=== PATIENT | female | born 1990 | race Caucasian/White ===

== ENCOUNTER 2017-08-06 08:28 | Day surgery (SDC) | payer MEDICAID, OTHER ==
[~2017-08-06] VITALS: Ht 154.9 cm; Wt 69.0 kg
[2017-08-06] VITALS (8 sets, daily range): BP systolic 106–124; BP diastolic 50–66; PULSE 67–86; RESP 16–55; Ht 154.9 cm; Wt 69.0 kg
--- NOTE | 2017-08-06 07:53 | HPN ---
Date/Time of Note Date/Time of Note DATE: 08/06/17 TIME: 07:53 Interval H&P Admission Note Pt. seen H&P reviewed: No system changes ARTHUR MONTE MD Aug 06, 2017 07:53
[~2017-08-06 08:28] MED LIST: ATROPINE 1 MG/10 ML SYRINGE IV PRN; BALANCED SALT SOLN 15 ML OPH IRRIG ONE; DIPHENHYDRAMINE 50 MG INJ IV PRN; EPHEDrine SULFATE 50 MG/5 ML SYG IV PRN; FENTAnyl 50 MCG/ML VIAL IV PRN; HYDROmorphONE (0.2 MG/ML) 10ML SYG IV PRN; LABETALOL HCL 20MG INJ IV PRN; LIDOCAINE 2%/EPI 30 ML INJ ONE; MEPERIDINE 25 MG INJ IV PRN; MIDAZOLAM 1 MG/ML 2 ML INJ IV PRN; MITOMYCIN 5 MG INJ OP ONE; ONDANSETRON 4 MG INJ IV PRN; OXYCODONE/ACETAMINOPHEN (5/325) TAB PO PRN; SEVOFLURANE 15 MIN ONE; TOBRAMYCIN/DEXAMETH 3.5 GM OPH OINT ONE; hydrALAzine 20 MG INJ IV PRN; morphine (1 MG/ML) 10ML SYRINGE IV PRN
[2017-08-06] MEDS ORDERED: HYDROCODONE/APAP (5/325) TAB PO SCH (09:30)
[2017-08-06] MEDS ORDERED: GLYCOPYRROLATE 0.4 MG INJ ONE (10:48)
[2017-08-06] MEDS ORDERED: LIDOCAINE 2% (SDV) 5 ML INJ ONE (10:48)
[2017-08-06] MEDS ORDERED: NEOSTIGMINE 3 MG/3 ML SYRINGE ONE (10:48)
[2017-08-06] MEDS ORDERED: MIDAZOLAM 1 MG/ML 2 ML INJ ONE (10:48)
[2017-08-06] MEDS ORDERED: FENTAnyl 50 MCG/ML VIAL ONE (10:48)
[2017-08-06] MEDS ORDERED: ROCURONIUM 50 MG INJ ONE (10:48)
[2017-08-06] MEDS ORDERED: PROPOFOL 20 ML ONE (10:48)
[2017-08-06] MEDS ORDERED: TOBRAMYCIN/DEXAMETH 3.5 GM OPH OINT ONE (10:53)
[2017-08-06] MEDS ORDERED: LIDOCAINE 2%/EPI 30 ML INJ ONE (10:53)
[2017-08-06] MEDS ORDERED: LIDOCAINE 2%/EPI MPF (SDV) 20 ML VIAL INJ ONE (11:10)
[2017-08-06] MEDS ORDERED: TETRACAINE 0.5% 4 ML OPH OPER ONE (11:15)
[2017-08-06] MEDS ORDERED: PHENYLephrine 10% 5 ML OPH OPER ONE (11:20)
[2017-08-06] MEDS ORDERED: TOBRAMYCIN/DEXAMETH 2.5 ML OPH ZFS SCH (12:00)
--- NOTE | 2017-08-06 12:13 | SIPON ---
Date/Time of Note Date/Time of Note DATE: 08/06/17 TIME: 12:11 Operative Report Preoperative Diagnosis pterygium right eye Postoperative Diagnosis same Operation/Procedure Performed excision of pterygium Surgeon see signature line Anesthesia Type: MAC Estimated Blood Loss: none Transfusion Required: no Specimen: none Grafts/Implants: none Complications: no ARTHUR MONTE MD Aug 06, 2017 12:13
[2017-08-06] MEDS ORDERED: TOBRAMYCIN/DEXAMETH 3.5 GM OPH OINT OPER SCH (21:00)
--- NOTE | 2017-09-12 05:50 | OPR ---
DATE OF OPERATION: 08/06/2017 SURGEON: Donita Abbott MD ENRICHMENT ASSISTANT: None. PREOPERATIVE DIAGNOSIS: Pterygium, right eye. POSTOPERATIVE DIAGNOSIS: Pterygium, right eye. OPERATION: Excision of pterygium, right eye; application of mitomycin C; closure of defect with con junctival advancement flaps. DESCRIPTION OF PROCEDURE: Following standard preparation and draping of the patient, a solid-blade lid speculum was placed for immobilization of the lids. A small amount of 2% Xylocaine with epineph rine was injected beneath the body of the pterygium so as to elevate it from the underlying sclerae. After adequate local anesthesia was obtained, Brigitte scissors were simply used to make an incisi on along the edges of the pterygium, amputating the body approximately 1 cm posterior to the limbus. At the limbus, the major portion of the tissue was simply excised using sharp scissors. Using a rotating marv bur, all of the scar tissue on the cornea was removed down to clear cornea. At this point, bleeding points were secured with the heat cautery. Mitomycin C (0.2 mg/ml) was no w applied to the limbal regions for three minutes. After three minutes, the eye was copiously irrig ated with balanced salt solution. A peritomy was now performed both superiorly and inferiorly and r elaxing incisions made at approximately the 6 and 12 o'clock positions. The undermining conjunctiva was now pulled both superiorly and inferiorly so as to close the previously made defect from which the pterygium had been removed. Sutures of interrupted 8-0 Vicryl were used and a bite of the under lying sclera was taken so as to ensure adequate maintenance of the flaps in a nonmovable position. Betadine 5% solution was placed on the eye, along with TobraDex ointment. A light pressure dressing was applied, and the patient returned to the recovery room in satisfactory condition. Dictated By: DONITA MUELLER/SHAR Conf#: [id number] DID#: [id number]
== END 2017-08-06 14:07 | disposition home or self-care (01) ==
LOC: SDS 08:28
PROVIDERS: ATTEND Ophthalmology
DX: H11.001 Unspecified pterygium of right eye (principal)
CPT/HCPCS: 65420; J2250; J3010; J9280; Z7512; Z7610; J2710

== ENCOUNTER 2018-01-30 07:37 | Day surgery (SDC) | END 2018-01-30 12:10 | disposition home or self-care (01) ==